=== PATIENT | female | born 1955 | race Asian ===

== ENCOUNTER 2017-07-22 23:22 | Emergency (ER) | payer OTHER ==
[~2017-07-22] VITALS: Ht 160 cm; Wt 53.5 kg
[2017-07-22 23:38] VITALS: Ht 160 cm; Wt 53.5 kg
[2017-07-23 01:22] VITALS: BP 144/91
== END 2017-07-23 01:22 | disposition home or self-care (01) ==
LOC: ED 23:22
DX: M54.5 Low back pain (principal); M62.830 Muscle spasm of back; I10 Essential (primary) hypertension; Z88.0 Allergy status to penicillin
CPT/HCPCS: J2270